=== PATIENT | male | born 1950 | race Caucasian/White ===

== ENCOUNTER 2019-02-28 12:18 | Inpatient (IN) | payer OTHER ==
[~2019-02-28] VITALS: Ht 180.3 cm; Wt 88.6 kg
[~2019-02-28 12:18] MED LIST: HYDACE5 PO; NAPR550 PO
[2019-02-28] MEDS ORDERED: PRED1 PO (12:35)
[2019-02-28 13:40] LABS: BASOPHILS ABSOLUTE AUTO 0.03 K/mm3 (0.00-0.23); BASOPHILS PERCENT AUTO 0 % (0-2); EOSINOPHILS ABSOLUTE AUTO 0.26 K/mm3 (0.00-0.68); EOSINOPHILS PERCENT AUTO 3 % (0-6); Hematocrit 39.2 % (37.0-53.0); IMMATURE GRAN ABSOLUTE AUTO 0.02 K/mm3 (0.00-0.10); IMMATURE GRAN PERCENT AUTO 0 % (0-1); LYMPHOCYTES ABSOLUTE AUTO 1.23 K/mm3 (0.84-5.20); LYMPHOCYTES PERCENT AUTO 15 % (21-46); MONOCYTES ABSOLUTE AUTO 0.71 K/mm3 (0.16-1.47); MONOCYTES PERCENT AUTO 9 % (4-13); Mean Corpuscular HGB 29.2 pg (26.0-34.0); Mean Corpuscular HGB Conc 33.2 g/dL (31.5-36.5); Mean Corpuscular Volume 88 fL (80-100); Mean Platelet Volume 10.9 fL (9.1-12.4); NEUTROPHILS ABSOLUTE AUTO 5.82 K/mm3 (1.96-9.15); NEUTROPHILS PERCENT AUTO 72 % (41-73); Platelet Count 225 K/mm3 (150-400); RDW Standard Deviation 41.9 fL (35.1-46.3); Red Blood Cell Count 4.45 M/mm3 (4.30-5.90); White Blood Cell Count 8.07 K/mm3 (4.00-11.30)
[2019-02-28 13:57] LABS: Alanine Aminotransfer (ALT/SGP 37 U/L (12-78); Albumin, Blood 3.5 g/dL (3.4-5.0); Alk Phos 108 U/L (50-136); Anion Gap 5 mmol/L (6-16); Aspartate Aminotrans (AST/SGOT 22 U/L (12-37); Bilirubin, Total 0.7 mg/dL (0.1-1.0); Blood Urea Nitrogen 14 mg/dL (8-24); Bun/Creatinine Ratio 14.8 (12.0-20.0); CO2, Blood 27 mmol/L (21-32); Calcium, Blood 8.7 mg/dL (8.5-10.1); Chloride, Blood 108 mmol/L (98-108); Creatinine, Blood 0.94 mg/dL (0.60-1.20); Globulin, Blood 3.6 g/dL (2.2-4.0); Glomerular Filtration Rate >60 (60-); Glucose, Blood 95 mg/dL (70-99); Potassium, Blood 4.1 mmol/L (3.5-5.5); Sodium, Blood 140 mmol/L (136-145); Total Protein, Blood 7.1 g/dL (6.4-8.2); Troponin I 0.039 ng/mL (0.000-0.040)
[2019-02-28 17:16] LABS: International Normalized Ratio 1.06; Prothrombin Time Results 11.2 Sec (9.7-11.5)
--- NOTE | 2019-02-28 20:30 | NUR ---
PT ARRIVES FROM [facility]ATEGIC BUSINESS DEVELOPMENT AT 1948 S/P BI LAT EKOS INSERTION SECONDARY TO SADDLE PE. REPORT WAS RECEIVED AND ASSUMED CARE. PT ALERT AND ORIENTED, PLEASANT AND COOPERATIE WITH CARE AND ASSESSMENT. GROIN SITES BI LAT WNL. NO HEMATOMA OR BLEED TO NOTED. TPA, HEPARIN, AND COOLANT LINES VERIFIED. PT STATES HE CAN TELL A HEAVINESS TO HIS CHEST WHEN HE TAKES DEEP BREATH. DID PLACED O2 AT 2 L/M SECONDARY TO SATURATIONS AT 88 PERCENT ON ROOM AIR. WILL CONTINUE TO MONITOR PT
[2019-02-28] MEDS ORDERED: CALCITRATE200 MG PO (21:16)
[2019-02-28] MEDS ORDERED: FLAX PO (21:17)
[2019-02-28] MEDS ORDERED: ASPI325 PO (21:18)
--- NOTE | 2019-02-28 23:00 | NUR ---
DR JANE COMES IN TO SEE PT EARLY DURING ADMIT TO GIVE PT AND HIS SON'S UPDATE ON STATUS AND POTENTIALS FOR PLANS AFTER EKOS. DR NIELSEN ALSO ON CONSULT COMES TO SEE PT. ORDERS RECEIVED. PT DENIES CHEST PAIN. CONTINUES ON EKOS. BOTH GROIN SITES WNL. NO BLEED OR HEMATOMAS TO NOTE.
--- NOTE | 2019-03-01 02:00 | NUR ---
PT HAS SLIGHT OOZING AT LEFT GROIN SITE. NO HEMATOMA TO NOTE. GOOD DISTAL CMS CHECKS BI LAT. CONTINUES WITH EKOS X 2. PT CONTINUES ON 2 L/M OXYGEN AND IS MAINTAINS > 90 PERCENT SATURATION.
[2019-03-01 03:32] LABS: BASOPHILS ABSOLUTE AUTO 0.02 K/mm3 (0.00-0.23); BASOPHILS PERCENT AUTO 0 % (0-2); EOSINOPHILS ABSOLUTE AUTO 0.09 K/mm3 (0.00-0.68); EOSINOPHILS PERCENT AUTO 1 % (0-6); Hematocrit 37.6 % (37.0-53.0); Hemoglobin 12.3 g/dL (13.5-17.5); IMMATURE GRAN ABSOLUTE AUTO 0.02 K/mm3 (0.00-0.10); IMMATURE GRAN PERCENT AUTO 0 % (0-1); LYMPHOCYTES ABSOLUTE AUTO 0.94 K/mm3 (0.84-5.20); LYMPHOCYTES PERCENT AUTO 11 % (21-46); MONOCYTES ABSOLUTE AUTO 0.44 K/mm3 (0.16-1.47); MONOCYTES PERCENT AUTO 5 % (4-13); Mean Corpuscular HGB 29.3 pg (26.0-34.0); Mean Corpuscular HGB Conc 32.7 g/dL (31.5-36.5); Mean Corpuscular Volume 90 fL (80-100); Mean Platelet Volume 10.6 fL (9.1-12.4); NEUTROPHILS PERCENT AUTO 82 % (41-73); Platelet Count 210 K/mm3 (150-400); White Blood Cell Count 8.31 K/mm3 (4.00-11.30)
[2019-03-01 03:51] LABS: Anion Gap 5 mmol/L (6-16); Blood Urea Nitrogen 15 mg/dL (8-24); Bun/Creatinine Ratio 16.2 (12.0-20.0); CO2, Blood 26 mmol/L (21-32); Calcium, Blood 8.1 mg/dL (8.5-10.1); Chloride, Blood 110 mmol/L (98-108); Creatinine, Blood 0.93 mg/dL (0.60-1.20); Glomerular Filtration Rate >60 (60-); Glucose, Blood 112 mg/dL (70-99); Potassium, Blood 4.2 mmol/L (3.5-5.5); Sodium, Blood 141 mmol/L (136-145)
--- NOTE | 2019-03-01 04:42 | NUR ---
HAVE DECREASED OXYGEN TO 1 LITER PER MINUTE. PENDING PT'S RESPONSE. HAVE DECREASED TPA DOSAGE BY HALF AFTER [address] JANE. PT STATES THAT HE HAS BEEN ABLE TO GET SOME SLEEP WITH RESTRICTIONS IN MOVEMENT IN BED. WILL CONTINUE TO MONITOR PT.
--- NOTE | 2019-03-01 06:14 | NUR ---
PT CONTINUES ON BI LATERAL EKOS. DRIPS CONTINUE PER ORDERS TPA, HEPARIN, AND COOLANT FLUIDS TO EACH EKOS. NO HEMATOMAS TO NOTE AT FEMORAL SITES. LEFT GROIN HAS HAD SMALL AMOUNT OF OOZING FROM SITE. PT HAS REMAINED COMPLIANT WITH PRECAUTIONS RELATED TO TPA. PT REMAINS ALERT AND ORIENTED. NO COMPLAINTS OF PAIN. DOES HAVE CHEST PRESSURE WHICH INCREASES WITH DEEP INSPIRATION. VSS THROUGHOUT THE NIGHT. GOOD DISTAL CMS CHECKS BI LAT TO LOWER EXTREMITIES. WILL CONTINUE TO MONITOR PT, AND WILL REPORT OFF TO ONCOMING RN.
--- NOTE | 2019-03-01 07:25 | NUR ---
Recieved report from Roger Palacio. Patient is supine in bed with HOB at 10 degrees. He has bilateral EKOS sheath in groin: NS at 35ml/hr, heaprin 1.69 units/kg/hr, Alteplase 16.5 ml/hr. He is on Ra and sats 96%. His speech is clear and he is able to communicate his needs. He has returned understanding that he needs to lay still and not turn in bed or lift legs. He also has 18ga IV in RAC and dressing intact and flushed and SL'd. He has FSm to RFA dressing intact and site WNL's and is flushed and SL'd. Left sheath site has some slight blood oozing from site and right side C/D/I. Patient uses urinal appropriatly when needed.
--- NOTE | 2019-03-01 09:30 | NUR ---
Bilateral groin sites C/D/I with small amount of oozing still on left side. No changes with EKOS. EKOS batteries fixed by Hooja. Family at bedside. Gave a piece of toast with penut butter and jelly.
--- NOTE | 2019-03-01 11:43 | NUR ---
[facility] called and stated he would be next case. no changes with EKOS or sites. Family at bedside.
--- NOTE | 2019-03-01 13:03 | NUR ---
Patient taken to labor and delivery registered nurse, EKOS pump to right side turned off half way to labor and delivery registered nurse and restarted when got there after plugging in. Patient stable at transfer.
--- NOTE | 2019-03-01 14:27 | NUR ---
ECHOCARDIOGRAM COMPLETE
[2019-03-01] MEDS ORDERED: XARELTO20 MG PO ×2 (15:53)
--- NOTE | 2019-03-01 16:59 | NUR ---
Patient returned from [facility] via ICU bed at 1430. His dressings on bilateral groin venous C/D/I and and are soft and palpable. He still c/o LLE pain benhind knee and Dr Gongora aware and will follow up. Advised patient if pain got worse to return. At 1500 walked around room for about 5 minutes and he went back to bed. Evaluated groin sites and soft and palpable with no oozing or bleeding. 1650 he was given written dischqarge instructions with new meds on discharge. Called in to [facility] and discussed how to take. He and his retuned acknowledgement of all information. Dr Gongora's office will call with [facility] Pulled both IV's from Right arm and placed gauze and wrapped in coban. He was taken out in wheelchair and taken to POV.
[2019-04-18] MEDS ORDERED: PRED1 PO (14:57)
[2019-04-18] MEDS ORDERED: FENO48 PO (14:57)
== END 2019-03-01 16:50 | disposition home or self-care (01) | DRG 167 ==
LOC: ER 12:18 → ICUW 16:29
PROVIDERS: Emergency Medicine; ADMIT Internal Medicine
PROC: 3E05317 Introduction of Other Thrombolytic into Peripheral Artery, Percutaneous Approach (ICD-10-PCS; 2019-02-28)
PROC: 06H03DZ Insertion of Intraluminal Device into Inferior Vena Cava, Percutaneous Approach (ICD-10-PCS; principal; 2019-03-01)
DX: I26.02 Saddle embolus of pulmonary artery with acute cor pulmonale (principal); I82.412 Acute embolism and thrombosis of left femoral vein; M35.3 Polymyalgia rheumatica; E78.00 Pure hypercholesterolemia, unspecified; Z88.5 Allergy status to narcotic agent; Z88.8 Allergy status to other drugs, medicaments and biological substances; Z79.82 Long term (current) use of aspirin; Z79.52 Long term (current) use of systemic steroids; Z87.891 Personal history of nicotine dependence
CPT/HCPCS: 36015; 36415; 37191; 37211; 37214; 71045; 71260; 75743; 75746; 75825; 80048; 80053; 84484; 85025; 85379; 85384; 85610; 85730; 93005; 93010; 93306; 93971; 99152; 99153; 99285-25; C1757; C1769; C1880; C1894; J1644; J1720; J2250; J2997; J3010; J7030; J7040; Q9967

== ENCOUNTER 2019-03-28 10:54 | Emergency (ER) | payer OTHER ==
[~2019-03-28] VITALS: Ht 180.3 cm; Wt 84.8 kg
[~2019-03-28 10:54] MED LIST changes: +ASPI325 PO; +CALCITRATE200 MG PO; +FLAX PO; +PRED1 PO; +XARELTO20 MG PO
[2019-03-28 12:02] LABS: BASOPHILS ABSOLUTE AUTO 0.03 K/mm3 (0.00-0.23); BASOPHILS PERCENT AUTO 1 % (0-2); EOSINOPHILS PERCENT AUTO 5 % (0-6); Hematocrit 42.4 % (37.0-53.0); Hemoglobin 13.6 g/dL (13.5-17.5); IMMATURE GRAN ABSOLUTE AUTO 0.01 K/mm3 (0.00-0.10); IMMATURE GRAN PERCENT AUTO 0 % (0-1); LYMPHOCYTES ABSOLUTE AUTO 2.09 K/mm3 (0.84-5.20); LYMPHOCYTES PERCENT AUTO 33 % (21-46); MONOCYTES ABSOLUTE AUTO 0.51 K/mm3 (0.16-1.47); MONOCYTES PERCENT AUTO 8 % (4-13); Mean Corpuscular HGB 28.9 pg (26.0-34.0); Mean Corpuscular HGB Conc 32.1 g/dL (31.5-36.5); Mean Corpuscular Volume 90 fL (80-100); Mean Platelet Volume 10.6 fL (9.1-12.4); NEUTROPHILS ABSOLUTE AUTO 3.49 K/mm3 (1.96-9.15); NEUTROPHILS PERCENT AUTO 54 % (41-73); Platelet Count 335 K/mm3 (150-400); RDW Standard Deviation 42.6 fL (35.1-46.3); Red Blood Cell Count 4.71 M/mm3 (4.30-5.90); White Blood Cell Count 6.43 K/mm3 (4.00-11.30)
[2019-03-28 12:16] LABS: Alanine Aminotransfer (ALT/SGP 29 U/L (12-78); Albumin, Blood 3.5 g/dL (3.4-5.0); Albumin/Globulin Ratio 0.8 (0.8-1.8); Alk Phos 109 U/L (50-136); Anion Gap 6 mmol/L (6-16); Aspartate Aminotrans (AST/SGOT 21 U/L (12-37); Bilirubin, Total 0.4 mg/dL (0.1-1.0); Blood Urea Nitrogen 17 mg/dL (8-24); Bun/Creatinine Ratio 15.7 (12.0-20.0); CO2, Blood 28 mmol/L (21-32); Calcium, Blood 8.5 mg/dL (8.5-10.1); Chloride, Blood 106 mmol/L (98-108); Creatinine, Blood 1.08 mg/dL (0.60-1.20); Globulin, Blood 4.2 g/dL (2.2-4.0); Glomerular Filtration Rate >60 (60-); Glucose, Blood 95 mg/dL (70-99); Potassium, Blood 4.3 mmol/L (3.5-5.5); Sodium, Blood 140 mmol/L (136-145); Total Protein, Blood 7.7 g/dL (6.4-8.2); Troponin I <0.015 ng/mL (0.000-0.040)
[2019-04-18] MEDS ORDERED: FENO48 PO (14:57)
[2019-04-18] MEDS ORDERED: PRED1 PO (14:57)
== END 2019-03-28 13:54 | disposition home or self-care (01) ==
LOC: ER 10:54
PROVIDERS: Emergency Medicine
DX: I82.4Z2 Acute embolism and thrombosis of unspecified deep veins of left distal lower extremity (principal); Z88.5 Allergy status to narcotic agent; Z88.8 Allergy status to other drugs, medicaments and biological substances; Z79.52 Long term (current) use of systemic steroids; Z79.899 Other long term (current) drug therapy; Z79.82 Long term (current) use of aspirin; Z87.891 Personal history of nicotine dependence
CPT/HCPCS: 36415; 80053; 84484; 85025; 93971; 99283-25

== ENCOUNTER 2019-06-14 07:08 | Day surgery (SDC) | payer OTHER ==
[~2019-06-14] VITALS: Ht 177.8 cm; Wt 85.0 kg
[~2019-06-14 07:08] MED LIST changes: +FENO48 PO
--- NOTE | 2019-06-14 10:47 | NUR ---
PT AND S/O VERBALIZES UNDERSTANDING WRITTEN AND VERBAL ORDERS. PT IV DC'D. CATH INTACT. PRESSURE DSG IN PLACE. PT DC' TO HOME VIA S/O BY WC. R IJ SITE REMAINS CLEAR. NO BLEEDING NOTED.
== END 2019-06-14 10:45 | disposition home or self-care (01) ==
LOC: MHTC 07:08
DX: Z45.2 Encounter for adjustment and management of vascular access device (principal); I82.409 Acute embolism and thrombosis of unspecified deep veins of unspecified lower extremity; E78.5 Hyperlipidemia, unspecified; Z86.711 Personal history of pulmonary embolism; Z88.8 Allergy status to other drugs, medicaments and biological substances
CPT/HCPCS: 37193; 76937; 99152; 99153; C1769; C1773; C1880; C1894; J1644; J2250; J3010; J7030; Q9967

== ENCOUNTER 2019-11-14 10:45 | Day surgery (SDC) | payer OTHER ==
[~2019-11-14] VITALS: Ht 180.3 cm; Wt 88.3 kg
[~2019-11-14 10:45] MED LIST changes: +FENO145 PO; +NORVASC2.5 MG PO
== END 2019-11-14 12:18 | disposition home or self-care (01) ==
LOC: ORSCSDS 10:45
PROVIDERS: Internal Medicine Gastroenterology
PROC: 0DBK8ZX Excision of Ascending Colon, Via Natural or Artificial Opening Endoscopic, Diagnostic (ICD-10-PCS; principal; 2019-11-14 12:00)
PROC: 0DBL8ZX Excision of Transverse Colon, Via Natural or Artificial Opening Endoscopic, Diagnostic (ICD-10-PCS; principal; 2019-11-14 12:00)
PROC: 0DBH8ZX Excision of Cecum, Via Natural or Artificial Opening Endoscopic, Diagnostic (ICD-10-PCS; principal; 2019-11-14 12:00)
DX: Z12.11 Encounter for screening for malignant neoplasm of colon (principal); D12.0 Benign neoplasm of cecum; D12.2 Benign neoplasm of ascending colon; D12.3 Benign neoplasm of transverse colon; K64.8 Other hemorrhoids; Z83.71 Family history of colonic polyps; Z86.718 Personal history of other venous thrombosis and embolism; E78.5 Hyperlipidemia, unspecified; Z87.891 Personal history of nicotine dependence; Z79.01 Long term (current) use of anticoagulants; Z79.899 Other long term (current) drug therapy
CPT/HCPCS: 88305; J2704; J7120

== ENCOUNTER 2021-12-11 11:50 | Emergency (ER) | payer OTHER ==
[~2021-12-11] VITALS: Ht 177.8 cm; Wt 86.2 kg
[2021-12-11 13:09] LABS: BASOPHILS ABSOLUTE AUTO 0.04 K/mm3 (0.00-0.23); BASOPHILS PERCENT AUTO 1 % (0-2); EOSINOPHILS ABSOLUTE AUTO 0.13 K/mm3 (0.00-0.68); EOSINOPHILS PERCENT AUTO 2 % (0-6); Hematocrit 43.5 % (37.0-53.0); Hemoglobin 14.4 g/dL (13.5-17.5); IMMATURE GRAN ABSOLUTE AUTO 0.02 K/mm3 (0.00-0.10); IMMATURE GRAN PERCENT AUTO 0 % (0-1); LYMPHOCYTES ABSOLUTE AUTO 1.86 K/mm3 (0.84-5.20); LYMPHOCYTES PERCENT AUTO 27 % (21-46); MONOCYTES ABSOLUTE AUTO 0.54 K/mm3 (0.16-1.47); MONOCYTES PERCENT AUTO 8 % (4-13); Mean Corpuscular HGB 29.6 pg (26.0-34.0); Mean Corpuscular HGB Conc 33.1 g/dL (31.5-36.5); Mean Corpuscular Volume 90 fL (80-100); Mean Platelet Volume 10.2 fL (9.1-12.4); NEUTROPHILS ABSOLUTE AUTO 4.34 K/mm3 (1.96-9.15); NEUTROPHILS PERCENT AUTO 63 % (41-73); Platelet Count 292 K/mm3 (150-400); RDW Coefficient Variation 13.2 % (11.7-14.2); RDW Standard Deviation 43.7 fL (35.1-46.3); Red Blood Cell Count 4.86 M/mm3 (4.30-5.90); White Blood Cell Count 6.93 K/mm3 (4.00-11.30)
[2021-12-11 13:29] LABS: Alanine Aminotransfer (ALT/SGP 25 U/L (12-78); Albumin, Blood 3.9 g/dL (3.4-5.0); Albumin/Globulin Ratio 0.9 (0.8-1.8); Alk Phos 60 U/L (50-136); Anion Gap 5 mmol/L (6-16); Aspartate Aminotrans (AST/SGOT 19 U/L (12-37); Bilirubin, Total 0.4 mg/dL (0.1-1.0); Blood Urea Nitrogen 19 mg/dL (8-24); Bun/Creatinine Ratio 18.1 (12.0-20.0); CO2, Blood 28 mmol/L (21-32); Chloride, Blood 106 mmol/L (98-108); Creatinine, Blood 1.05 mg/dL (0.60-1.20); Globulin, Blood 4.2 g/dL (2.2-4.0); Glomerular Filtration Rate >60 (60-); Glucose, Blood 108 mg/dL (70-99); Magnesium, Blood 2.4 mg/dL (1.6-2.4); Potassium, Blood 4.1 mmol/L (3.5-5.5); Sodium, Blood 139 mmol/L (136-145); Total Protein, Blood 8.1 g/dL (6.4-8.2)
[2021-12-11] MEDS ORDERED: Pepcid40 MG PO (16:08)
== END 2021-12-11 16:44 | disposition home or self-care (01) ==
LOC: ER 11:50
PROVIDERS: Physician Assistant
DX: R07.89 Other chest pain (principal); Z88.5 Allergy status to narcotic agent; Z88.8 Allergy status to other drugs, medicaments and biological substances; Z79.899 Other long term (current) drug therapy; Z79.52 Long term (current) use of systemic steroids; Z87.891 Personal history of nicotine dependence
CPT/HCPCS: 36415; 71045; 80053; 83735; 83880; 84484; 85025; 93005; 93010; 99285-25

== ENCOUNTER 2025-09-12 08:16 | Day surgery (SDC) | payer OTHER ==
[~2025-09-12] VITALS: Ht 180.3 cm; Wt 82.6 kg
[~2025-09-12 08:16] MED LIST changes: +Pepcid40 MG PO
[2025-09-12] MEDS ORDERED: ROSUVASTATIN CAL5 MG (08:36)
[2025-09-12] MEDS ORDERED: EZETIMIBE10 M6 (08:36)
[2025-09-12] MEDS ORDERED: TIMO10T (08:36)
[2025-09-12] MEDS ORDERED: PROP10 (08:37)
[2025-09-12] MEDS ORDERED: LATA.005SO (08:37)
[2025-09-12 11:03] VITALS: BP 122/87
== END 2025-09-12 11:10 | disposition home or self-care (01) ==
LOC: ORSCSDS 08:16
PROVIDERS: Internal Medicine Gastroenterology
PROC: 0DBM8ZX Excision of Descending Colon, Via Natural or Artificial Opening Endoscopic, Diagnostic (ICD-10-PCS; principal; 2025-09-12 09:30)
PROC: 0DBL8ZX Excision of Transverse Colon, Via Natural or Artificial Opening Endoscopic, Diagnostic (ICD-10-PCS; principal; 2025-09-12 09:30)
DX: Z12.11 Encounter for screening for malignant neoplasm of colon (principal); Z86.0101 Personal history of adenomatous and serrated colon polyps; D12.3 Benign neoplasm of transverse colon; D12.4 Benign neoplasm of descending colon; Z83.79 Family history of other diseases of the digestive system; K64.4 Residual hemorrhoidal skin tags; E78.5 Hyperlipidemia, unspecified; Z87.891 Personal history of nicotine dependence
CPT/HCPCS: 88305; J2704; J7120